=== PATIENT | female | born 1970 | race Caucasian/White ===

== ENCOUNTER 2021-09-02 09:09 | Emergency (ER) | payer MEDICAID ==
[~2021-09-02] VITALS: Ht 154.9 cm; Wt 63.6 kg
[2021-09-02 10:11] LABS: COVID AG,FIA SOURCE NASAL SWAB
[2021-09-02 10:50] LABS: INFLUENZA TYPE A NEGATIVE FOR TYPE A (NEGATIVE)
[2021-09-02 10:53] LABS: INFLUENZA TYPE B POSITIVE FOR TYPE B (NEGATIVE)
[2021-09-02 11:32] VITALS: BP 130/74
[2021-09-02] MEDS: OSELTAMIVIR PHOSPHATE 75 MG CAPSULE PO ONE (11:36)
== END 2021-09-02 12:00 | disposition home or self-care (01) ==
LOC: EMS 09:12
DX: J11.1 Influenza due to unidentified influenza virus with other respiratory manifestations (principal); E11.9 Type 2 diabetes mellitus without complications; F17.210 Nicotine dependence, cigarettes, uncomplicated; Z20.822 Contact with and (suspected) exposure to COVID-19
CPT/HCPCS: 82962; 87804; 99283